=== PATIENT | female | born 1955 | race Caucasian/White ===

== ENCOUNTER 2018-11-27 09:58 | Outpatient (CLI) | payer OTHER ==
--- NOTE | 2018-11-27 15:51 | BD ---
Exam: DEXA Bone Density 11/27/18 HISTORY: Postmenopausal Lumbar Spine: BMD (g/cm2) T-SCORE L1 1.008 +0.2 L2 1.082 +0.5 L3 1.128 +0.4 L4 0.995 -0.6 L1-L4 1.052 +0.0 Left Femoral Neck: 0.682 -1.5 Total Femur: 0.955 +0.1 Impression: 1. Osteopenia of the left femoral neck. Normal bone mineral density of the lumbar spine. Ten year fracture for major osteoporotic fracture is 27% and hip fracture 1.4%. These fracture probab ilities are calculated for an untreated patient. POS: [facility]
== END 2018-11-27 09:59 | disposition home or self-care (01) ==
LOC: BICMAMMO 09:58
PROVIDERS: ATTEND Specialist
DX: M81.0 Age-related osteoporosis without current pathological fracture (principal); M85.852 Other specified disorders of bone density and structure, left thigh
CPT/HCPCS: 77080

== ENCOUNTER 2019-10-30 09:38 | Outpatient (CLI) | payer OTHER, SELFPAY ==
[2019-10-30 13:27] LABS: #Basophils 0.1 thou/uL (0.0-0.2); #Eosinphils 0.2 thou/uL (0.0-0.7); #Lymphocytes 1.5 thou/uL (1.20-3.40); #Monocytes 0.4 thou/uL (0.11-0.59); #Neutrophils 3.1 thou/uL (1.40-6.50); %Basophils 1.7 % (0.0-1.0); %Eosinophils 4.3 % (0.0-10.0); %Monocytes 8.2 % (0.0-10.0); %Neutrophils 57.8 % (42.0-75.0); Hemoglobin 13.9 g/dL (12.0-16.0); Mean Corpuscular HGB CONC 33.7 g/dL (32.0-36.0); Mean Corpuscular Volume 94.9 fL (78.0-98.0); Mean Platelet Volume 8.6 fL (7.4-10.4); Platelet Count 311 thou/uL (130-400); Red Blood Cell (RBC) Count 4.35 mill/uL (4.20-5.40); White Blood Cell (WBC) Count 5.4 thou/uL (4.8-10.8)
[2019-10-30 15:17] LABS: Hep C IgG Ab Non-Reactive (NonReactive); Hep C Index 0.35 S/CO (0-0.79)
[2019-10-31 12:17] LABS: SARS-CoV-2 MS2 Positive; SARS-CoV-2 N Gene Negative; SARS-CoV-2 S Gene Negative; SARS-CoV-2 orf1ab Negative
== END 2019-10-30 09:39 | disposition home or self-care (01) ==
LOC: SCSLAB 09:38
PROVIDERS: ATTEND Plastic Surgery
DX: Z01.812 Encounter for preprocedural laboratory examination (principal); Z11.59 Encounter for screening for other viral diseases; C44.311 Basal cell carcinoma of skin of nose
CPT/HCPCS: 85025; 86803; 87635; U0003

== ENCOUNTER 2020-04-21 13:44 | Outpatient (CLI) | payer BC ==
--- NOTE | 2020-04-21 14:29 | BD ---
BONE DENSITOMETRY USING DEXA: Date: 04/21/2020 HISTORY: 64-year-old female with screening for postmenopausal osteoporosis. FINDINGS: Lumbar Spine: BMD (g/cm2) L1 1.016 T-Score: 0.2 Z-Score: 1.6 L2 1.122 T-Score: 0.9 Z-Score: 2.4 L3 1.125 T-Score: 0.4 Z-Score: 2.0 L4 0.976 T-Score: -0.8 Z-Score: 0.9 L1-L4 1.057 T-Score: 0.1 Z-Score: 1.7 Femoral Neck: 0.672 T-Score: -1.6 Z-Score: -0.2 Total Femur: 0.954 T-Score: 0.1 Z-Score: 1.2 There has been interval improvement of 0.4% in the bone mineral density of the lumbar spine and a red uction of 0.1% in the bone mineral density of the proximal femur since 11/27/2018. The 10 year fracture risk for a major osteoporotic fracture is 27% and for a hip fracture is 1.5%. IMPRESSION: Osteopenia. POS: [facility]
--- NOTE | 2020-04-21 14:38 | MMO ---
Bilateral MAMMO Bilat Screen [facility]. CLINICAL HISTORY: Patient is 64 years old and is seen for screening. The patient has no family history of breast cancer. The patient has no personal history of cancer. VIEWS: The views performed were: bilateral craniocaudal with tomosynthesis and bilateral mediolateral oblique with tomosynthesis. FILMS COMPARED: The present examination has been compared to prior imaging studies performed at [facility] on 02/13/2000 and 03/01/2015. This study has been interpreted with the assistance of computer-aided detection. MAMMOGRAM FINDINGS: The breasts are heterogeneously dense, which could obscure a lesion on mammography. There are stable benign appearing calcifications seen in both breasts. There are no suspicious masses, suspicious calcifications, or new areas of architectural distortion. IMPRESSION: THERE IS NO MAMMOGRAPHIC EVIDENCE OF MALIGNANCY. A ROUTINE FOLLOW-UP MAMMOGRAM IN 1 YEAR IS RECOMMENDED. THE RESULTS OF THIS EXAM WERE SENT TO THE PATIENT. ACR BI-RADS Category 2 - Benign finding MAMMOGRAPHY NOTE: 1. A negative mammogram report should not delay a biopsy if a dominant of clinically suspicious mass is present. 2. Approximately 10% to 15% of breast cancers are not detected by mammography. 3. Adenosis and dense breasts may obscure an underlying neoplasm. Reported by: CHRISTINE MARTIN MD Electonically Signed: [id number]
== END 2020-04-21 13:45 | disposition home or self-care (01) ==
LOC: BICMAMMO 13:44
PROVIDERS: ATTEND Specialist
DX: Z12.31 Encounter for screening mammogram for malignant neoplasm of breast (principal); M81.0 Age-related osteoporosis without current pathological fracture; M85.859 Other specified disorders of bone density and structure, unspecified thigh
CPT/HCPCS: 77063; 77067; 77080

== ENCOUNTER 2021-01-06 12:02 | Outpatient (CLI) | payer BC | END 2021-01-06 12:03 | disposition home or self-care (01) | LOC: BICRAD 12:02 | PROVIDERS: ATTEND Specialist | DX: S29.9XXA Unspecified injury of thorax, initial encounter (principal) | CPT/HCPCS: 71046; 71120 ==

== ENCOUNTER 2021-01-06 16:03 | Outpatient (CLI) | payer BC ==
[2021-01-07 13:57] LABS: SARS-CoV-2 PCR by NAA Not Detected (NotDetected)
== END 2021-01-06 16:04 | disposition home or self-care (01) ==
LOC: LABBT 16:03
PROVIDERS: ATTEND Internal Medicine Gastroenterology
DX: Z01.812 Encounter for preprocedural laboratory examination (principal); Z20.822 Contact with and (suspected) exposure to COVID-19; S29.9XXA Unspecified injury of thorax, initial encounter
CPT/HCPCS: 71046; 71120; U0003; U0005

== ENCOUNTER 2021-01-10 08:46 | Day surgery (SDC) | payer BC ==
[2021-01-09 16:44] VITALS: BMI 23.8
[2021-01-10] MEDS ORDERED: PROPOFOL 200 MG/20 ML VIAL ONE (11:21)
[2021-01-10] MEDS ORDERED: Lidocaine 1% PF 5 ML VIAL ONE (11:21)
== END 2021-01-10 12:20 | disposition home or self-care (01) ==
LOC: SDC 08:46
PROVIDERS: ATTEND Internal Medicine Gastroenterology
PROC: 0DB78ZX Excision of Stomach, Pylorus, Via Natural or Artificial Opening Endoscopic, Diagnostic (ICD-10-PCS; principal; 2021-01-10)
DX: K31.89 Other diseases of stomach and duodenum (principal); K25.9 Gastric ulcer, unspecified as acute or chronic, without hemorrhage or perforation; K44.9 Diaphragmatic hernia without obstruction or gangrene; E78.5 Hyperlipidemia, unspecified; E03.9 Hypothyroidism, unspecified; G25.81 Restless legs syndrome; R63.4 Abnormal weight loss; Z68.23 Body mass index [BMI] 23.0-23.9, adult; Z79.899 Other long term (current) drug therapy; Z85.828 Personal history of other malignant neoplasm of skin; Z88.5 Allergy status to narcotic agent; Z88.8 Allergy status to other drugs, medicaments and biological substances
CPT/HCPCS: 88305; J2704

== ENCOUNTER 2024-04-24 10:35 | Outpatient (CLI) | payer OTHER | END 2024-04-24 10:36 | disposition home or self-care (01) | LOC: BICMAMMO 10:35 | PROVIDERS: ATTEND Specialist | DX: Z12.31 Encounter for screening mammogram for malignant neoplasm of breast (principal) | CPT/HCPCS: 77063; 77067 ==